=== PATIENT | male | born 1980 | race Caucasian/White ===

== ENCOUNTER 2022-01-18 06:53 | Outpatient (CLI) | payer BC, SELFPAY | END 2022-01-18 06:54 | disposition home or self-care (01) | PROVIDERS: PCP Physician Assistant Medical; Visit Provider Family Medicine | DX: M54.16 Radiculopathy, lumbar region (principal); M51.36 Other intervertebral disc degeneration, lumbar region | CPT/HCPCS: 62323; Q9966 ==

== ENCOUNTER 2022-02-22 12:55 | Outpatient (CLI) | payer BC, SELFPAY | END 2022-02-22 12:56 | disposition home or self-care (01) | LOC: INJ CL 12:55 | PROVIDERS: PCP Physician Assistant Medical; Visit Provider Family Medicine | DX: M54.16 Radiculopathy, lumbar region (principal); M51.36 Other intervertebral disc degeneration, lumbar region | CPT/HCPCS: 62323; J0702; Q9966 ==

== ENCOUNTER 2024-12-22 09:18 | Emergency (ER) | payer BC, SELFPAY ==
--- OUTSIDE RECORDS SUMMARY | 2024-12-22 09:20 | XMS_ITS | Clinical Summary ---
Author Organization [facility] Address [address] [place] [id number] Care Team Providers Care Provider Contracting Consultant Name Role Phone Evita Hassan Primary Care Provider Allergies No known active allergies Medications BD INSULIN PEN NEEDLE UF MINI 31 gauge x 3/16Indications: IDDM (insulin dependent diabetes mellitus) USE TO ADMINISTER INSULIN AT HOME DIRECTED 500 Each 3 03/07/20 18 Active Insulin [place], Disposable, (EASY TOUCH) 31 gauge x 3/16Indications: Diabetes mellitus type 2, uncontrolled, with complications USE TO ADMINISTER INSULIN DIRECTED 500 Each 3 07/20/19 21 Active UltiCare Pen Needle 31 gauge x 3/16Indications: Diabetes mellitus type 2, uncontrolled, with complications USE TO ADMINISTER INSULIN DIRECTED 500 Each 3 09/01/19 22 Active fluticasone (50 mcg per actuation) nasal solution (FLONASE)Indicati ons:Seasonal allergic rhinitis INHALE ONE SPRAY INTO EACH NOSTRIL ONCE DAILY 48 g 2 02/05/20 22 Active lancets (Accu-Chek FastClix Lancing Dev)Indications:D iabetes mellitus (HC) Test 3 times per day. 100 Each 5 08/01/19 23 Active blood-glucose meterIndications: Type 1 diabetes mellitus without complications (HC) Dispense meter, test strips, lancets covered by pt ins. Use to check blood sugar 3-4 times daily 1 Each 08/09/19 24 Active blood sugar diagnostic (Contour Next Test Strips) stripIndications: Diabetes mellitus type 2 with complications (HC) USE TO TEST BLOOD GLUCOSE THREE TIMES A DAY DIRECTED 300 Each 3 10/23/19 24 Active cetirizine (Allergy Relief, cetirizine,) 10 mg tabletIndications :Seasonal allergic rhinitis due to pollen TAKE 1 TABLET BY MOUTH DAILY. 90 Tablet 1 10/23/19 24 Active albuterol HFA (Ventolin HFA) 90 mcg/actuation inhalerIndication s:Cough, unspecified type INHALE 2 PUFFS BY MOUTH 4 TIMES DAILY NEEDED 18 g 1 07/24/19 25 Active insulin aspart, U-100, (NovoLOG Flexpen U-100 Insulin) 100 unit/mL (3 mL) penIndications:Un controlled type 1 diabetes mellitus with hyperglycemia (HC) INJECT 1.5 UNITS UNDER THE SKIN PER 15 GRAMS OF CARBS AND CORRECTION OF 1 UNIT FOR EVERY 30 ABOVE 130-- BEFORE MEALS AND AT BEDTIME FOR A MAX DOSE OF 30 UNITS PER DAY 60 mL 5 07/24/19 25 Active insulin glargine, U-100, (Lantus Solostar U-100 Insulin) 100 unit/mL (3 mL) penIndications:Un controlled type 1 diabetes mellitus with hyperglycemia (HC) INJECT 22 UNITS UNDER THE SKIN TWICE DAILY DIRECTED 60 mL 2 07/24/19 25 Active pen needle (Unifine Pentips Plus) 31 gauge x 3/16 (disposable insulin pen needle)Indication s:Diabetes mellitus type 2 with complications (HC) USE TO ADMINISTER INSULIN DIRECTED 400 Each 3 07/24/19 25 Active Dexcom G7 Sensor for continuous blood glucose monitor (CGM)Indications: Type 1 diabetes mellitus without complications (HC) TO BE USED TO READ BLOOD SUGARS, FOLLOW TREATMENT MANAGER DIRECTIONS. CHANGE EVERY 10 DAYS 9 Each 3 08/08/19 25 Active Active Problems Problem Noted Date Diagnosed Date IDDM (insulin dependent diabetes mellitus) 04/22 Overview (06/04/2014): Diagnosed in late 2012. Rx Glipizide and Metformin and 47 lbs weight loss with A1c 9.1% => 6.2%. Off medications x 2 months with A1c 8.5 => 10.3% Lantus, Novolog and Metformin. Rectal bleeding 03/11/2011 Overview (03/11/2011): Colonoscopy 03/2011 normal Panic attacks 05/21/2010 Anxiety state, unspecified 10/02/2008 Resolved Problems Problem Noted Date Diagnosed Date Resolved Date Retinopathy 04/18/2013 06/04/2014 Immunizations Immunization Administration Dates Next Due COVID-19 vaccine ([employer] NTLeisureLogix 30mcg/0.3mL) PF, MDV 09/10/2020 DTaP 05/16/1984,05/18/1983,10/13/1982 Influenza, IIV4 04/12/2018,02/22/2016 Influenza, IIV4 (=>6mos) MDV 03/06/2017 MMR 05/18/1983 Polio Virus, Unspecified 05/16/1984,05/18/1983,0 10/13/1982 Td (Age >=7 Years) 09/30/2004 Tdap 07/24/2024,05/30/2011 Family History Medical History Relation Name Comments Other Father alcoholic Diabetes Maternal Grandfather Type 2 Cancer-colon Paternal Grandfather age 70 Cancer-colon Paternal Uncle 1 Shaun age 53 Cancer-colon Paternal Uncle 2 Sean of unr elated cause Relation Name Status Comments Father Alive Maternal Grandfather Mother Alive Paternal Grandfather Paternal Uncle 1 Shaun Paternal Uncle 2 Sean Social History Tobacco Use Types Packs/Day Years Used Date Smoking Tobacco: Every Day Cigarettes 1.5 10 Smokeless Tobacco: Never Tobacco Cessation:Ready to Q uit: No; Counseling Given: Yes Alcohol Use Standard Drinks/Week Comments Yes 0 (1 standard drink = 0.6 oz pure alcohol) occasionally; couple drinks once per week. PHQ-2 Answer Date Recorded PHQ-2 TOTAL SCORE 0 11/26/2019 Social Connections Answer Date Recorded Do you often feel lonely or isolated from those around you? 0 07/24/2024 Alcohol Use Answer Date Recorded How often do you have a drink containing alcohol ? 3 11/29/2021 How many drinks containing a lcohol do you have on a typical day when you are drinking? 1 11/29/2021 How often do you have five or more drinks on one occasion? 2 11/29/2021 Financial Resource Strain Answer Date R ecorded Difficulty of Paying Living Expenses 3 07/24/2024 Difficulty of Paying Living Expenses Not on file 07/24/2024 Food Insecurity Answer Date Recorded Do you worry your food will run out before you are able to buy more? 1 07/24/2024 Transportation Needs Answer Date Record ed Does lack of transportation keep you from medica l appointments? 1 07/24/2024 Does lack of transportation keep you from work, meetings or getting things that you need? 1 07/24/2024 Housing Stability Answer Date Recorded What is your housing situation today? 1 07/24/2024 Utilities Answer Date Recorded Do you have trouble paying f or utilities (for example, heat, electricity, water, phone)? 1 07/24/2024 Sex and Gender Information Value Date Recorded Sex Assigned at Not on file Legal Sex Male 5:59 AM [employer] Gender Identity Not on file Sexual Orientation Not on file Occupation Industry Job Start Date Job End Date [employer] Not on file Not on file Not on file Obstetrics History Last Filed Vital Signs Vital Sign Reading Time Taken Comments Blood Pressure 116/73 07/24/2024 10:58 AM [employer] Pulse 69 07/24/2024 10:58 AM [employer] Temperature 36.4 C (97.5 F) 04/01/2022 10:41 AM CDT Respiratory Rate 20 11/29/2021 8:24 AM CDT Oxygen Saturation 98% 02/10/2023 3:26 PM CDT Inhaled Oxygen Concentration - - Weight 84.8 kg (187 lb) 07/24/2024 10:58 AM [employer] Height 172 cm (5' 7.72) 12/22/2021 8:10 AM CDT Body Mass Index 28.67 12/22/2021 8:10 AM CDT Plan of Treatment Health Maintenance Due Date Last Done Comments HIV for age 15-65 1996 Hepatitis C screening for ag e 18-79 11/11/1999 Hepatitis B series for 19+ ( 1 of 3 - 19+ 3-dose series) 2000 Pneumococcal series for age 6-49 (1 of 2 - PCV) 2000 Depression screening for age 12+ 11/25/2020 11/26/2019, 08/22/2018, 07/17/2017, Additional history exists BMI (ht and wt on same day) for age 18+ 12/22/2022 12/22/2021, 07/22/2020, 07/22/2020, Additional history exists COVID-19 vaccine series ( - 2024-25 season) 2024 09/10/2020 Influenza Vaccine (#1) 2025 8, 03/06/2017, 02/22/2016 Lipids for age 35-44 07/24/2029 07/24/2024, 07/05/2023, 05/16/2022, Additional history exists Tetanus booster 07/24/2034 07/24/2024, 05/06, 09/30/2004 Procedures Procedure Name Priority Date/Time Associated Diagnosis Comments LIPID PANEL W REFLEX MEASURED LDL Routine 07/24/2024 11:50 AM [employer] Screening cholesterol level from Last 3 Months or Most Recently Relevant to Health Maintenance Results * (ABNORMAL) LIPID PANEL W REFLEX MEASURED LDL (07/24/2024 11:50 AM B[employer] AXLE) CHOLESTEROL, TOTAL 193 <200 mg/dL [facility] HDL CHOLESTEROL 67 > OR = 40 mg/dL [facility] TRIGLYCERIDES 68 <150 mg/dL [facility] LDL-CHOLESTEROL 111(H) mg/dL (calc) [facility] Comment: Reference range: <100 Desirable range <100 mg/dL for primary prevention; <70 mg/dL for patients with CHD or diabetic patients with > or = 2 CHD risk factors. LDL-C is now calculated using the Kevin-Soler calculation, which is a validated novel method providing better accuracy than the Friedewald equation in the estimation of LDL-C. Kevin SS et al. BRENDAN. 2013;310(19): 1870-1816 (http://education.Crowdcare.Phantom/faq/FXV490) CHOL/HDLC RATIO 2.9 <5.0 (calc) [facility] NON HDL CHOLESTEROL 126 <130 mg/dL (calc) [facility] Comment: For patients with diabetes plus 1 major ASCVD risk factor, treating to a non-HDL-C goal of <100 mg/dL (LDL-C of <70 mg/dL) is considered a therapeutic option. Blood BLOOD SPECIMEN / Unknown 07/24/2024 11:50 AM [employer] 07/24/2024 11:51 AM B[employer] AXLE us Evita RAMOS CHEMISTRY Final R esult [facility] [address] [place] [address], [place] [phone] [facility] [address] [place] [address] from Last 3 Months or Most Recently Relevant to Health Maintenance Insurance [facility] Care Teams Provider Contracting Consultant Relationship Specialty Start Date End Date Evita Hassan PA [address] [place] [address] PCP - General Family Practice 08/16/13
[2024-12-22 09:21] VITALS: BP 159/94; PULSE 75; RESP 18; TEMP 36.9; O2SAT 96; BMI 26.6
--- NOTE | 2024-12-22 09:32 | ED.UPPEXIN ---
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 Dad notes that he was holding the goat by the horn and leading it away when a dog came up behind it and cause that go to jump. When this happened Arsenio still had a hold of the foreign and when the goat flipped his arm flipped pronating into a 360 and then falling on the ground on his wrist. Since that time he has had significant pain especially in the forearm. He notes that moving of his fingers hurts the forearm as well. He notes that he has chronic discomfort in his right shoulder having had a history of frequent subluxations. Perhaps that pain is slightly worse. He notes pain with movement of the wrist as well. He has not taken any medication at this time. History of carpal tunnel bilaterally in the past. Related Data Home Medications ?Medication ?Instructions ?Recorded ?Confirmed albuterol sulfate 90 mcg/actuation inhalation 12/22/24 aerosol inhaler (Ventolin HFA) cetirizine 10 mg tablet (Allergy 10 mg PO DAILY 12/22/24 12/22/24 Relief (cetirizine)) insulin aspart U-100 100 unit/mL subcut 12/22/24 (3 mL) subcutaneous pen insulin glargine 100 unit/mL (3 unit subcut 12/22/24 mL) subcutaneous pen (Lantus Solostar U-100 Insulin) Allergies Allergy/AdvReac Type Severity Reaction Status Date / Time No Known Drug Allergies Allergy Verified 12/22/24 09:26 Review of Systems Status of ROS: Reports: 6 or more systems reviewed and unremarkable except as noted in History and below [facility] Social History Smoking Status: Current every day smoker What tobacco products do you use: cigarettes Smoking packs per day: 1 Smoking cigarettes per day: 20.0 Do you use any of these nicotine containing products: None How often do you have a drink containing alcohol: 2-3 times a week How many standard drinks containing alcohol do you have on a typical day: 1 or 2 How often do you have six or more drinks on one occasion: Weekly AUDIT-C Alcohol total score: 6 Non-prescribed substance use: marijuana (any form) service: No Exam Narrative: Exam Narrative: Alert and oriented. Does appear to be in discomfort. Mentation is normal. No unusual respirations. Patient has palpable tenderness over the posterior lateral superior forearm as well as dorsal wrist. Palpation over deltoid does not yield significant tenderness. He is able to move shoulder. He is able to flex extend at the elbow. At his wrists he has no snuffbox tenderness. Distally sensation and motor is intact. No obvious ecchymosis. Const: Vital Signs, click to edit/add: Vital Signs - 24 hr 12/22/24 09:21 Temperature 98.5 F Pulse Rate [Right Pulse Oximeter] 75 Respiratory Rate 18 Blood Pressure [Ri ght Upper Arm] 159/94 H Pulse Oximetry 96 Oxygen Delivery Me thod Room Air Documenting provider has reviewed patient's vital signs: yes Course Course ED Course: Differential diagnosis includes but is not limited to underlying fracture, ligamental damage, tendon and muscular strain. Will x-ray shoulder through wrist at this time. Patient had been offered ibuprofen but declined. Consultations Consultation #1: I was able to speak to Oralia RAMOS from Ortho in regards to this patient. Question was posterior fat pad displacement on the wrist . She feels at this time we should put Arsenio in a sling, no splint. She would recommend some movement in order to avoid stiffness. Recommends allowing injury to calm down over the next 1-2 days so that we are better at able to ascertain the focal discomfort. Vital Signs Vital signs: Initial Vital Signs Temperature 98.5 F 12/22/24 09:21 Temperature Source Temporal Artery Scan 12/22/24 09:21 Pulse Rate 75 12/22/24 09:21 Pulse Rhythm Regular 12/22/24 09:21 Pulse Strength 3+ Normal 12/22/24 09:21 Respiratory Rate 18 12/22/24 09:21 Blood Pressure 159/94 H 12/22/24 09:21 Blood Pressure Mean 115 H 12/22/24 09:21 Blood Pressure Position Sitting 12/22/24 09:21 Pulse Oximetry 96 12/22/24 09:21 Oxygen Delivery Method Room Air 12/22/24 09:21 Vital Signs Temperature 98.5 F 12/22/24 09:21 Pulse Rate 75 12/22/24 09:21 Respiratory Rate 18 12/22/24 09:21 Blood Pressure 159/94 H 12/22/24 09:21 Pulse Oximetry 96 12/22/24 09:21 Oxygen Delivery Method Room Air 12/22/24 09:21 Temperature 98.5 F 12/22/24 09:21 Pulse Rate 75 12/22/24 09:21 Respiratory Rate 18 12/22/24 09:21 Blood Pressure 159/94 H 12/22/24 09:21 Pulse Oximetry 96 12/22/24 09:21 Oxygen Delivery Method Room Air 12/22/24 09:21 MDM - Extremity Injury (Upper) MDM Narrative Medical decision making narrative: 1. Right arm injury-patient noted to have no fractures of the shoulder elbow forearm or wrist. He did have according to Radiology posterior fat pad displacement on the wrist. At this time he is placed in a sling. Recommend continued icing of this area. For pain may use ibuprofen or Aleve alternating that with Tylenol every 4 hours as needed for discomfort. Did discuss the need for increase fluids as NSAIDs can be hard on the kidneys and the stomach. An appointment will be made for him to follow-up with orthopedics for a recheck. Also spoke about importance of not using the right arm during this healing. Would also recommend light activity or movement of the wrist and elbow to prevent stiffening of joint. 2. Disposition-home at this time. Seek medical attention/return for worsening symptoms and as needed. Medical Records Attestation: I reviewed the patient's medical records. Imaging Data Shoulder x-ray: Attestation: I have reviewed the pertinent imaging results. My impression: I do not note any acute injury Radiologist's impression: There is no displaced fracture or dislocation. Mild degenerative changes of the acromioclavicular and glenohumeral joints are appreciated with loss of joint space and marginal osteophyte formation. The soft tissues are unremarkable. Impression: Mild degenerative changes of the shoulder without acute osseous abnormality. Wrist x-ray: Attestation: I have reviewed the pertinent imaging results. My impression: I do not note any acute fractures Radiologist's impression: There is no displaced fracture or dislocation. The joint spaces are grossly preserved. There is mild carpal soft tissue swelling with likely mild pronator fat pad displacement. Impression: No evidence of displaced fracture. Mild carpal soft tissue prominence with questionable pronator fat pad displacement. Right forearm x-ray: Attestation: I have reviewed the pertinent imaging results. My impression: I do not note acute fracture Radiologist's impression: There is no displaced fracture or dislocation. The joint spaces are grossly preserved. There is mild distal carpal soft tissue swelling. Impression: Mild distal carpal soft tissue swelling without evidence of displaced fracture. Right elbow x-ray: Attestation: I have reviewed the pertinent imaging results. My impression: No acute fracture. Radiologist's impression: There is no displaced fracture or dislocation. The joint spaces are grossly preserved. The soft tissues are unremarkable. Impression: No acute osseus abnormality. Discharge Plan Discharge Clinical Impression: Injury of right upper extremity Patient Disposition: Home, Self-Care Condition: Unchanged Instructions: How to Use a Sling (ED) Additional Instructions: 1. Please use sling during the day. A few times during the day you may remove the sling and gently move the wrist and elbow in the hopes that we can avoid significant stiffness. 2. For pain alternate ibuprofen 600 and acetaminophen 1000 mg every 4 hours. 3. Follow-up with orthopedics on . They will be able to access my note as well as the x-rays. 4. Return to the ER for worsening symptoms. Prescriptions: No Action cetirizine [Allergy Relief (cetirizine)] 10 mg tablet 10 mg PO DAILY albuterol sulfate [Ventolin HFA] 90 mcg/actuation HFA aerosol inhaler inhalation insulin aspart U-100 100 unit/mL (3 mL) insulin pen SUBCUT Patient Comments: [NO ORIGINAL SIG] insulin glargine [Lantus Solostar U-100 Insulin] 100 unit/mL (3 mL) insulin pen subcut Follow Up/Referrals: Evita Hassan PA-C [Primary Care Provider, Family Practice] Stand Alone Forms: [facility] Info Instructions
--- NOTE | 2024-12-22 09:36 | CRLHL7_ITS ---
For Patients: As a result of the Cures Act, medical imaging exams and procedure reports are released immediately into your electronic medical record. You may view this report before your referring provider. If you have questions, please contact your health care provider. Indication: Arm injury working with goat, arm twisted and heard pop Comparison: None available. Technique: AP and lateral views right elbow were obtained. Findings: There is no displaced fracture or dislocation. The joint spaces are grossly preserved. The soft tissues are unremarkable. Impression: No acute osseus abnormality. Dictated by Mayur Levi MD @ 12/22/2024 10:14:32 AM (Electronically Signed)
--- NOTE | 2024-12-22 09:36 | CRLHL7_ITS ---
For Patients: As a result of the Century Cures Act, medical imaging exams and procedure reports are released immediately into your electronic medical record. You may view this report before your referring provider. If you have questions, please contact your health care provider. Indication: Arm injury working with goat, arm twisted and heard pop Comparison: None available. Technique: AP and lateral views right forearm were obtained. Findings: There is no displaced fracture or dislocation. The joint spaces are grossly preserved. There is mild distal carpal soft tissue swelling. Impression: Mild distal carpal soft tissue swelling without evidence of displaced fracture. Dictated by Mayur Levi MD @ 12/22/2024 10:09:17 AM (Electronically Signed)
--- NOTE | 2024-12-22 09:36 | CRLHL7_ITS ---
For Patients: As a result of the Cures Act, medical imaging exams and procedure reports are released immediately into your electronic medical record. You may view this report before your referring provider. If you have questions, please contact your health care provider. Indication: Arm injury working with good, arm twisted and heard pop Comparison: None available. Technique: 3 views of the right shoulder were obtained Findings: There is no displaced fracture or dislocation. Mild degenerative changes of the acromioclavicular and glenohumeral joints are appreciated with loss of joint space and marginal osteophyte formation. The soft tissues are unremarkable. Impression: Mild degenerative changes of the shoulder without acute osseous abnormality. Dictated by Mayur Levi MD @ 12/22/2024 10:11:33 AM (Electronically Signed)
--- NOTE | 2024-12-22 09:36 | CRLHL7_ITS ---
For Patients: As a result of the Century Cures Act, medical imaging exams and procedure reports are released immediately into your electronic medical record. You may view this report before your referring provider. If you have questions, please contact your health care provider. Indication: Arm injury working with goat, twisted and heard a pop Comparison: None available. Technique: AP, lateral, and oblique views right wrist were obtained. Findings: There is no displaced fracture or dislocation. The joint spaces are grossly preserved. There is mild carpal soft tissue swelling with likely mild pronator fat pad displacement. Impression: No evidence of displaced fracture. Mild carpal soft tissue prominence with questionable pronator fat pad displacement. Dictated by Mayur Levi MD @ 12/22/2024 10:07:33 AM (Electronically Signed)
== END 2024-12-22 11:00 | disposition home or self-care (01) ==
PROVIDERS: Emergency Provider Family Medicine; PCP Physician Assistant Medical
DX: S49.91XA Unspecified injury of right shoulder and upper arm, initial encounter (principal); S59.911A Unspecified injury of right forearm, initial encounter; W55.32XA Struck by other hoof stock, initial encounter
CPT/HCPCS: 73030; 73070; 73090; 73110; 99284